=== PATIENT | male | born 1970 | race Two or more races ===

== ENCOUNTER 2016-10-27 23:42 | Inpatient (IN) | payer OTHER, MEDICAID, MEDICARE ==
--- NOTE | 2016-10-28 00:05 | ED Physician Chart ---
Chief Complaint/HPI - Patient Information Date Seen:: 10/28/16 Time Seen:: 23:56 History of Present Illness:: this is a 46 yo male sent from a board and care for an evaluation because he has been missing for two days. they claim that he has weakness. Allergies:: Allergies Allergy/AdvReac Type Severity Reaction Status Date / Time No Known Allergies Allergy Verified 10/27/16 23:55 Historian:: Medical Records Review:: Nurse's Note Reviewed Review of Systems - Review of Systems General/Constitutional: Other (the patient is lathargic and not able to give a reliabe review of systems.) Skin: No skin lesions, No rash, No bruising Head: No headache, No light-headedness Eyes: No loss of vision, No pain, No diplopia ENT: No earache, No nasal drainage, No sore throat, No tinnitus Neck: No neck pain, No swelling, No thyromegaly, No stiffness, No mass noted Cardio Vascular: No chest pain, No palpitations, No PND, No orthopnea, No edema Pulmonary: No SOB, No cough, No sputum, No wheezing GI: No nausea, No vomiting, No diarrhea, No pain, No melena, No hematochezia, No constipation, No hematemesis G/U: No dysuria, No frequency, No hematuria Musculoskeletal: No bone or joint pain, No back pain, No muscle pain Endocrine: No polyuria, No polydipsia Psychiatric: No prior psych history, No depression, No anxiety, No suicidal ideation Hematopoietic: No bruising, No lymphadenopathy Allergic/Immuno: No urticaria, No angioedema Neurological: No syncope, No focal symptoms, No weakness, No paresthesia, No headache, No seizure, No dizziness, No confusion, No vertigo Past Medical History - Past Medical History Obtainable: No Past Medical History: Dementia Family History: None Social History: Non Smoker, No Alcohol, No Drug Use Surgical History: None Psychiatricy History: Schizophrenia Medication: Reviewed Family Medical History - Family Member Mother History Unknown: Yes Physical Exam - Physical Examination General/Constitutional: Well-developed, well-nourished, No distress, GCS 15, Non -toxic appearing, Ambulatory Other Gen/Cons comments:: lethargic on and off with poor response. Head: Atraumatic Eyes: Lids, conjuctiva normal, PERRL, EOMI Skin: Nl inspection, No rash, No skin lesions, No ecchymosis, Well hydrated, No lymphadenopathy ENMT: External ears, nose nl, Nasal exam nl, Lips, teeth, gums nl Neck: Nontender, Full ROM w/o pain, No JVD, No nuchal rigidity, No bruit, No mass, No stridor Respiratory: Nl effort/Exclusion, Clear to Auscultation, No Wheeze/Rhonchi/Rales Cardio Vascular: RRR, No murmur, gallop, rubs, NL S1 S2 GI: No tenderness/rebounding/guarding, No organomegaly, No hernia, Normal BS's, Nondistended, No mass/bruits, No McBurney tenderness : No CVA tenderness Extremities: No tenderness or effusion, Full ROM, normal strength in all extremities, No edema, Normal digits & nails Neuro/Psych: Alert/oriented, DTR's symmetric, Normal sensory exam, Normal motor strength, Judgement/insight normal, Mood normal, Normal gait, No focal deficits Misc: normal gait, Normal back, No paraspinal tenderness Labs/Radiology/EKG Results - Lab Results Results: Abnormal Lab Results 10/28/16 10/28/16 10/28/16 00:00 00:00 00:06 WBC 5.9 RBC 4.64 Hgb 13.8 Hct 40.8 MCV 88.0 MCH 29.8 MCHC Differential 33.8 RDW 11.8 Plt Count 223 MPV 6.7 Band Neutrophils % 2 Neutrophils (Manual) 45 Lymphocytes 43 Monocytes 8 Eosinophils 2 Platelet Estimate ADEQUATE Sodium Potassium Chloride Carbon Dioxide Anion Gap BUN Creatinine Est GFR ( Amer) Est GFR (Non-Af Amer) BUN/Creatinine Ratio Glucose Calcium Total Bilirubin AST ALT Alkaline Phosphatase Troponin I Total Protein Albumin Globulin Albumin/Globulin Ratio Urine Source CLEAN C Urine Color ORANGE Urine Clarity CLEAR Urine pH 6.5 Ur Specific Atalissa 1.020 Urine Protein NEGATIVE Urine Glucose (UA) NEGATIVE Urine Ketones NEGATIVE Urine Blood NEGATIVE Urine Nitrate NEGATIVE Urine Bilirubin NEGATIVE Urine Urobilinogen >=8.0 H Ur Leukocyte Esterase NEGATIVE Urine RBC NONE SEEN Urine WBC 0-2 Ur Epithelial Cells OCCASIONAL Urine Bacteria OCCASIONAL Urine Opiates Screen NEGATIVE Ur Barbiturates Screen NEGATIVE Ur Phencyclidine Scrn NEGATIVE Amphetamines Screen NEGATIVE U Methamphetamines Scrn NEGATIVE U Benzodiazepines Scrn NEGATIVE U Cocaine Metab Screen NEGATIVE U Cannabinoids Screen NEGATIVE 10/28/16 10/28/16 00:06 00:06 WBC RBC Hgb Hct MCV MCH MCHC Differential RDW Plt Count MPV Band Neutrophils % Neutrophils (Manual) Lymphocytes Monocytes Eosinophils Platelet Estimate Sodium 115 L* Potassium 3.9 Chloride 80 L Carbon Dioxide 31.6 H Anion Gap 7.3 BUN 7 Creatinine 0.6 L Est GFR ( Amer) > 60.0 Est GFR (Non-Af Amer) > 60.0 BUN/Creatinine Ratio 11.7 Glucose 101 Calcium 8.9 Total Bilirubin 1.2 H AST 30 ALT 14 Alkaline Phosphatase 73 Troponin I 0.01 Total Protein 6.5 Albumin 4.1 L Globulin 2.4 Albumin/Globulin Ratio 1.7 Urine Source Urine Color Urine Clarity Urine pH Ur Specific Atalissa Urine Protein Urine Glucose (UA) Urine Ketones Urine Blood Urine Nitrate Urine Bilirubin Urine Urobilinogen Ur Leukocyte Esterase Urine RBC Urine WBC Ur Epithelial Cells Urine Bacteria Urine Opiates Screen Ur Barbiturates Screen Ur Phencyclidine Scrn Amphetamines Screen U Methamphetamines Scrn U Benzodiazepines Scrn U Cocaine Metab Screen U Cannabinoids Screen - Radiology Results Results: ct scan of the head = pituitary mass Assessment - Assessment General Assessment: THE PATIENT WAS GIVEN IV FLUIDS FOR HIS ELECTROLYTE ABNORMALITY. HE WAS ADMITTED TO THE MED/SURG FLOOR FOR AN MRI SCAN AND NEUROLOGY CONSULT IN THE AM. ED Septic Shock - . Is Septic Shock (SBP<90, OR Lactate>4 mmol\L) present?: No Reassessment (Disposition) - Reassessment Reassessment Condition:: Improved - Diagnosis Diagnosis:: PITUITARY MASS ABNORMAL ELECTROLYTES - Aftercare/Follow up Instructions Aftercare/Follow-Up Instructions:: Counseled pt regarding lab results/diagnosis & need follow up, Refer to Discharge Instructions, Counseled pt & family regarding lab results/diagnosis & need follow up - Patient Disposition Discharge/Transfer:: Home Admitting Medical Physician:: [place] Condition at Disposition:: Unchanged ED Discharge Plan - Patient Disposition Admit/Discharge/Transfer: Acute Care w/in this hosp Condition at Disposition: Unchanged
[2016-10-28 00:15] LABS: MEAN CORPUSCULAR HGB CONC 33.8 pg (28.0-36.0)
[2016-10-28 00:24] LABS: HEMATOCRIT 40.8 % (39.0-49.0); HEMOGLOBIN 13.8 gm/dL (13.2-17.3); MEAN CORPUSCULAR HEMOGLOBIN 29.8 pg (26.0-30.0); MEAN PLATELET VOLUME 6.7 fl; PLATELET COUNT 223 Th/cmm (150-400); RED BLOOD COUNT 4.64 Mil/cmm (4.30-5.70); RED CELL DISTRIBUTION WIDTH 11.8 % (11.5-20.0); WHITE BLOOD COUNT 5.9 Th/cmm (4.8-10.8)
[2016-10-28 00:30] LABS: ALB/GLOB RATIO 1.7 (1.0-1.8); ALKALINE PHOSPHATASE 73 U/L (34-104); ANION GAP 7.3 (7.0-16.0); BILIRUBIN,TOTAL 1.2 mg/dL (0.3-1.0); BUN - UREA NITROGEN 7 mg/dL (7-25); BUN/CREATININE RATIO 11.7; CALCIUM SERUM 8.9 mg/dL (8.6-10.3); CARBON DIOXIDE 31.6 mEq/L (21.0-31.0); CHLORIDE 80 mEq/L (98-107); CREATININE - SERUM 0.6 mg/dL (0.7-1.3); GLUCOSE 101 mg/dL (70-105); POTASSIUM SERUM 3.9 mEq/L (3.5-5.1); SGOT 30 U/L (13-39); SGPT/ALT 14 U/L (7-52)
[2016-10-28 00:33] LABS: SODIUM SERUM 115 mEq/L (136-145)
[2016-10-28 00:40] LABS: BAND NEUTROPHILE 2 % (0-10); EOSINOPHIL 2 % (0-5); NEUTROPHILS 45 % (40-80); PLATELET ESTIMATE ADEQUATE (NORMAL); TOTAL CELLS COUNTED 100
[2016-10-28 00:42] LABS: URINE BILIRUBIN NEGATIVE (NEGATIVE); URINE BLOOD NEGATIVE (NEGATIVE); URINE COLOR ORANGE; URINE GLUCOSE (UA) NEGATIVE (NEGATIVE); URINE KETONE NEGATIVE (NEGATIVE); URINE PH 6.5; URINE PROTEIN NEGATIVE (NEGATIVE); URINE UROBILINOGEN >=8.0 E.U./dL (0.2 - 1.0)
[2016-10-28 00:43] LABS: URINE BACTERIA OCCASIONAL /hpf (NONE SEEN); URINE EPITHELIAL CELLS OCCASIONAL /lpf (FEW); URINE RBC NONE SEEN /hpf (0-5); URINE WBC 0-2 /hpf (0-5)
[2016-10-28 00:44] LABS: AMPHETAMINE URINE NEGATIVE (NEGATIVE); BARBITURATES URINE NEGATIVE (NEGATIVE)
[2016-10-28] MEDS ORDERED: Sodium Chloride 0.9% 1,000 ML IV ONE (01:31)
--- NOTE | 2016-10-28 03:26 | Admit Criteria Form ---
Admit Criteria Forms - Admit Criteria Diagnosis: HYPONATREMIA; HYPERNATREMIA; HYPOKALEMIA; HYPERKALEMIA; HYPOCALCEMIA; HYPERCALCEMIA Clinical Indications for Inpatient Care (Place 'X' for any and all applicable criteria): Ongoing inpatient care may be indicated for ANY ONE of the following [G](1)(2)(3 )(5): [X]I. Hyponatremia with ANY ONE of the following: [X]a) Sodium less than 130 mEq/L (mmol/L) (new) (6)(22) [ ]b) Sodium less than 135 mEq/L (mmol/L) with ANY ONE of the following: [ ]i) Severe medical etiology requiring inpatient management (eg, heart failure, hypovolemia) [ ]ii) Altered mental status [ ]iii) Seizures [ ]II. Hypernatremia with ANY ONE of the following: [ ]a) Sodium greater than 155 mEq/L (mmol/L) [ ]b) Sodium greater than 150 mEq/L (mmol/L) with ANY ONE of the following: [ ] i) Altered mental status [ ]ii) Seizures [ ]iii) Severe medical etiology (eg, hypovolemia, diabetes insipidus) [ ]iv) Severe weakness [ ]v) Severe medical etiology (eg, hemolysis, infection, drug overdose) [ ]III. Hypokalemia with ANY ONE of the following: [ ]a) Potassium less than 2.5 mEq/L (mmol/L) despite outpatient and emergency treatment [ ]b) Potassium less than 3.0 mEq/L (mmol/L) with ANY ONE of the following: [ ]i) Weakness [ ]ii) Cardiac abnormality (eg, arrhythmia, conduction disturbance) [ ]iii) Cardiac ischemia [ ]iv) Ileus [ ]v) Ongoing medical cause requiring inpatient management. ( e.g., acute renal wasting, SIADH) [ ]vi) Other severe symptoms [ ] IV. Hyperkalemia with ANY ONE of the following: [ ]a) Potassium greater than 6.5 mEq/L (mmol/L) [ ]b) Potassium greater than 5 mEq/L (mmol/L) with ANY ONE of the following: [ ]i) Severe ECG findings [H] [ ]ii) Acute worsening of renal failure (creatinine greater than 2.5 mg/dL (221 micromoles/L) or significant elevation for age and size) [ ] V. Hypocalcemia with ANY ONE of the following: [ ]a) Calcium less than 7 mg/dL (1.75 mmol/L) despite outpatient and emergency treatment(19) [ ]b) Calcium less than 8 mg/dL (2 mmol/L) with significant symptoms or findings; examples include: [ ]i) Cardiac abnormality (eg, arrhythmia or conduction disturbance) [ ]ii) Altered mental status [ ]iii) Seizures [ ]iv) Breathing difficulty [ ]v) Muscle spasms [ ]. Hypercalcemia with ANY ONE of the following: [ ]a) Calcium greater than 14 mg/dL (3.5 mmol/L) [ ]b) Calcium greater than 12 mg/dL (3 mmol/L) with ANY ONE of the following: [ ]i) Significant dehydration or hypovolemia as indicated by ANY ONE of the following(2): [ ]1. Clinically significant dehydration as indicated by ANY ONE of the following: [ ]A. Acute loss of weight from baseline (5% of body weight in adults, 9% in pediatric patients) [ ]B. Hemodynamic instability [ ]C. Acute renal failure [ ]D. Serum sodium greater than 150 mEq/L (mmol/L) [ ]2) Dehydration that is persistent indicated by ALL of the following: [ ]A. Oral rehydration therapy not tolerated or insufficient to adequately correct dehydration [ ]B. Appropriate intravenous treatment (eg, fluids ) does not readily correct dehydration ie, after 12 to 24 hours of treatment) [ ]ii) Significant symptoms or findings; examples include: [ ]1) Altered mental status [ ]2) Cardiac abnormality (eg, arrhythmia, conduction disturbance) [ ]3) Cardiac abnormality (eg, arrhythmia, conduction disturbance) The original [employer] [facility] content created by [employer] has been revised. The portions of the content which have been revised are identified through the use of italic text or in bold, and [facility] has neither reviewed nor approved the modified material. All other unmodified content is copyright [facility] [email or web address] Please see references footnoted in the original [facility] edition 2016 Admit Criteria Met?: Yes
[2016-10-28] MEDS: Sodium Chloride 0.9% 1,000 ML IV SCH (04:00)
[2016-10-28] MEDS ORDERED: Magnesium Hydroxide (MOM) 30 mL UDC PO PRN (06:26)
[2016-10-28] MEDS ORDERED: Maalox 30 mL Cup PO PRN (06:26)
[2016-10-28] MEDS ORDERED: Hydrocodone/APAP 5mg/325mg Tab PO PRN (06:26)
--- NOTE | 2016-10-28 10:44 | Diagnostic Imaging Report ---
CT scan of the brain without intravenous contrast HISTORY: Headache Total DLP equals 687 CTDI equals 35.8 Axial sections were obtained from the base of the skull to the vertex. There is a normal ventricular system size. No focal parenchymal lesions are seen. No intracerebral hemorrhage. No mass effect or shift of midline structures. The exam demonstrates abnormal density within the sella turcica most likely associated with a pituitary mass. An MRI with and without intravenous contrast would provide additional assessment and evaluation. No other extra-axial masses or abnormal fluid collections. IMPRESSION: 1. Abnormal density within the sella turcica most likely related to a pituitary mass. An MRI exam with and without intravenous contrast would provide additional assessment. 2. No other acute intracerebral parenchymal abnormalities
[2016-10-29] MEDS: Sodium Chloride 0.9% 1,000 ML IV SCH ×2 (05:59→15:01)
[2016-10-29 06:51] LABS: HEMOGLOBIN 12.6 gm/dL (13.2-17.3); MEAN CELL VOLUME 86.6 fl (80-99); MEAN CORPUSCULAR HEMOGLOBIN 30.3 pg (26.0-30.0); MEAN PLATELET VOLUME 6.7 fl; PLATELET COUNT 229 Th/cmm (150-400); RED BLOOD COUNT 4.16 Mil/cmm (4.30-5.70); WHITE BLOOD COUNT 6.6 Th/cmm (4.8-10.8)
[2016-10-29 07:00] LABS: ANION GAP 9.2 (7.0-16.0); BUN - UREA NITROGEN 8 mg/dL (7-25); CALCIUM SERUM 7.9 mg/dL (8.6-10.3); CARBON DIOXIDE 29.4 mEq/L (21.0-31.0); CHLORIDE 90 mEq/L (98-107); CREATININE - SERUM 0.5 mg/dL (0.7-1.3); GLUCOSE 84 mg/dL (70-105); POTASSIUM SERUM 4.6 mEq/L (3.5-5.1); SODIUM SERUM 124 mEq/L (136-145)
[2016-10-29 08:53] LABS: BAND NEUTROPHILE 0 % (0-10); NEUTROPHILS 44 % (40-80); PLATELET ESTIMATE ADEQUATE (NORMAL); TOTAL CELLS COUNTED 100
--- NOTE | 2016-10-29 09:29 | History & Physical ---
CHIEF COMPLAINT: Weakness. HISTORY OF PRESENT ILLNESS: The patient is a 46-year-old male who was a resident of a [facility] and [facility] facility. The patient was ____ for 2 days. The patient was brought to the ER for complaints of weakness. ALLERGIES: No known allergies. ____. PAST MEDICAL HISTORY: Dementia and schizophrenia. SOCIAL HISTORY: No reports of smoking, drinking or IV drug use. MEDICATIONS: See med rec form. PHYSICAL EXAMINATION: GENERAL: The patient is awake, alert, nontoxic in appearance. VITAL SIGNS: On admission, temperature 98.5, pulse 80, blood pressure 102/62, respiratory rate 16, O2 sat 97% on room air. HEENT: Normocephalic, atraumatic. Extraocular movements intact. Pupils are reactive to light. Oropharynx is clear. NECK: Supple. No thyromegaly. LUNGS: Clear. No wheezing or rhonchi. CARDIOVASCULAR: S1 and S2. No rubs, murmurs or gallops. GASTROINTESTINAL: Soft, nontender. Positive bowel sounds. GENITOURINARY: No CVA tenderness, no suprapubic tenderness. BACK: ____ tenderness. EXTREMITIES: Equal pulses bilaterally. No cyanosis, clubbing or edema. SKIN: Negative. NEUROLOGIC: Cranial nerves 2-12 intact. Extraocular movements intact. Sensation is intact. Bilateral . LABORATORY DATA: On admission, hematology, WBC 5.9, hemoglobin 13.8, hematocrit 40.8, platelets count ____. . Chemistry, sodium 115, potassium 3.9, chloride 80, bicarb 31.6, anion gap 7.3, BUN 7, creatinine 0.6, GFR more than 60, glucose 101, calcium 8.9, total bilirubin 1.2, AST 30, ALT 40, alk phos 73, troponin 0.01, total protein 6.5, albumin 4.1, globulin 2.4. Urinalysis negative. Urine drug screen negative. RADIOLOGY: CT of the head shows known density within , most likely related to a pituitary mass. MRI scan without contrast . No other acute parenchymal abnormalities. IMPRESSION: 1. Pituitary mass. 2. Weakness. 3. Hyponatremia. 4. Transaminitis. 5. Hypoalbuminemia. 6. Dementia. 7. Schizophrenia. PLAN: The patient will be admitted to [facility]. Neurology consultation with Dr. Yeung. Nephrology consultation with [facility]. JOB# [id number]
--- NOTE | 2016-10-29 13:29 | Consultation ---
NEPHROLOGY CONSULTATION REASON FOR CONSULTATION: Hyponatremia. HISTORY OF PRESENT ILLNESS: This is a 46-year-old male with a history of dementia who presents from [facility] where he had been noted to be missing for several days and was noted to be weak. Further history is unable to be obtained due to patient's clinical condition and lack of medical information ____ at this time. The patient does have a documented history of schizophrenia as well as dementia. On arrival, the patient was noted to have a sodium of 115 with a bicarb of 31.6. He otherwise has not had any changes in mentation. The patient is sleeping at this time, difficult to arouse. Otherwise has been clinically stable. PAST MEDICAL HISTORY: Significant for dementia, schizophrenia. PAST SURGICAL HISTORY: Unknown. FAMILY HISTORY: Unknown. SOCIAL HISTORY: No documented history of tobacco, alcohol or drug use. Lives at [facility]. REVIEW OF SYSTEMS: Unable to obtain due to the patient's condition. CURRENT MEDICATIONS: Reviewed per medication reconciliation. PHYSICAL EXAMINATION: VITAL SIGNS: Temperature 98.2, pulse 91, blood pressure 113/79, respirations 17. GENERAL: Sleeping not arousable. HEENT: Membranes moist. No erythema. NECK: Supple. CARDIOVASCULAR: Regular rate and rhythm without murmur. LUNGS: Clear to auscultation bilaterally. ABDOMEN: Soft, nontender, nondistended. EXTREMITIES: Warm, trace edema. SKIN: Intact. NEUROLOGIC: Not following commands. LABORATORY DATA: Sodium 115, potassium 3.9, chloride 80, bicarbonate 31, BUN 7, creatinine 0.6, serum glucose 101, AST 30, ALT 14, albumin 4.1. Urinalysis specific gravity 1.020, negative protein, negative glucose, negative blood, negative ketones. Toxicology negative for opiates, negative for amphetamines, negative for benzodiazepine, negative for methamphetamine, negative for cocaine. ASSESSMENT: 1. Severe hyponatremia. 2. Acute encephalopathy. 3. Schizophrenia. 4. Metabolic alkalosis. 5. Dementia. PLAN: The patient has severe hyponatremia at this time; however, appears to have minimal symptoms. We will need to check urine and serum osmolalities to rule out any renal concentration defects. The patient also has extensive psychiatric history, so hyponatremia may also be secondary to primary polydipsia as well as various psychiatric medications. We will also need to check a TSH at this time. We will hold 3% saline for now. Continue to monitor BMP, low threshold to initiate ____ if patient develops further deficits. Continue to monitor BMP q. 8 at this time. I agree with fluid restriction to 1 liter and will also check ____ urine electrolytes. JOB# [id number]
--- NOTE | 2016-10-31 01:38 | Progress Notes ---
SUBJECTIVE: The patient is awake, alert. The patient is on IV fluids. OBJECTIVE: VITAL SIGNS: Temperature 98.6, pulse 95, blood pressure per nursing, respiratory rate 17, O2 saturation 98% on room air. CARDIOVASCULAR: S1, S2. RESPIRATORY: Clear. GASTROINTESTINAL: Soft. Positive bowel sounds. LABORATORY DATA: Hematology: WBC 6.6, hemoglobin 12.6, hematocrit 36.0, platelet count 229, 12% monocytes. Chemistry: Sodium 124, potassium 4.6, chloride 90, bicarbonate 29, anion gap of 9.2, BUN 8, creatinine 0.5. GFR is more than 60. Glucose 84, calcium 7.9. Urine sodium is 10. Microbiology: MRSA screen from 10/28/2016 negative. Radiology: No new radiology tests. ASSESSMENT: 1. Pituitary mass. 2. Weakness. 3. Hyponatremia. 4. Transaminitis. 5. Dementia. 6. Schizophrenia. 7. Anemia. 8. Hypercalcemia. PLAN: Continue current medication and treatment. Obtain labs in a.m. Further consults. JOB# [id number] [facility]
--- NOTE | 2016-11-12 23:29 | Discharge Summary ---
DISCHARGE DIAGNOSES: 1. Pituitary mass. 2. Weakness. 3. Hyponatremia. 4. Transaminitis. 5. Dementia. 6. History of schizophrenia. 7. History of anemia. 8. ____. HOSPITAL COURSE: The patient is a 46-year-old male who is resident of [facility] [place]. The patient was brought into ER because of weakness. The patient was admitted with diagnosis of pituitary mass, weakness, hyponatremia, transaminitis, hypoalbuminemia, dementia and schizophrenia. The patient was admitted to [facility]. Consultation was obtained. Neurology consultation was obtained with Dr. Yeung. Nephrology consultation was obtained with Dr. [facility]. ____ nephrology, Dr. Carnes ____ minimal symptoms. ____ IV fluid. Continue with fluid restriction to 1 L per day. The patient ____ electrolytes level. The patient showed improvement with electrolytes and IV fluids. ____ nephrology, the patient was discharged back to his [facility] [place] on 10/30/2016. JOB# [id number]
== END 2016-10-30 16:20 | DRG 640 ==
LOC: ER 23:42 → MSI 10-28 03:00
PROVIDERS: ADMIT Preventive Medicine Preventive Medicine/Occupational Environmental Medicine; ATTEND Preventive Medicine Preventive Medicine/Occupational Environmental Medicine
DX: E87.1 Hypo-osmolality and hyponatremia (principal); G93.40 Encephalopathy, unspecified; E87.3 Alkalosis; E23.6 Other disorders of pituitary gland; F03.90 Unspecified dementia, unspecified severity, without behavioral disturbance, psychotic disturbance, mood disturbance, and anxiety; F20.9 Schizophrenia, unspecified; R74.0 Nonspecific elevation of levels of transaminase and lactic acid dehydrogenase [LDH]; E88.09 Other disorders of plasma-protein metabolism, not elsewhere classified; D64.9 Anemia, unspecified; E83.52 Hypercalcemia
CPT/HCPCS: 36415-UA; 70450-TC; 80048-TC; 80053-TC; 81001-TC; 82436-90; 83930-90; 83935-90; 84300-TC; 84443-TC; 84484-TC; 85007-TC; 85027-TC; 97530; J7030; J7042; X3904